=== PATIENT | female | born 1985 | race Asian ===

== ENCOUNTER 2023-04-18 09:34 | Emergency (ER) | payer MEDICAID ==
[~2023-04-18] VITALS: Ht 167.6 cm; Wt 69.9 kg
[2023-04-18 09:47] VITALS: BP 125/66; TEMP 98.2; O2SAT 99
== END 2023-04-18 11:42 | disposition home or self-care (01) ==
LOC: ER 09:39
DX: R05.9 Cough, unspecified (principal); R04.2 Hemoptysis
CPT/HCPCS: 71045-TC

== ENCOUNTER 2024-05-27 21:56 | Emergency (ER) | payer MEDICAID ==
[~2024-05-27] VITALS: Ht 167.6 cm; Wt 68.9 kg
[2024-05-27 23:07] VITALS: BP 139/72; TEMP 98.1
[2024-05-27] MEDS ORDERED: TRIA15OI9 TP (23:17)
[2024-05-27] MEDS ORDERED: CEPH-570 PO (23:17)
[2024-05-27] MEDS ORDERED: PREGABALIN 25 MG CAPSULE ONE (23:23)
[2024-05-27] MEDS ORDERED: CEPHALEXIN MONOHYDRATE 500 MG CAPSULE PO ONE (23:23)
[2024-05-27] MEDS ORDERED: predniSONE 20 MG TABLET ONE (23:24)
[2024-05-27] MEDS: CEPHALEXIN MONOHYDRATE 500 MG CAPSULE PO ONE (23:27)
[2024-05-27] MEDS: predniSONE 20 MG TABLET PO ONE (23:27)
[2024-05-27 23:41] VITALS: O2SAT 98
== END 2024-05-27 23:42 | disposition home or self-care (01) ==
LOC: ER 21:59
DX: S90.862A Insect bite (nonvenomous), left foot, initial encounter (principal); L03.116 Cellulitis of left lower limb; L03.115 Cellulitis of right lower limb; W57.XXXA Bitten or stung by nonvenomous insect and other nonvenomous arthropods, initial encounter; Y93.89 Activity, other specified; Y92.89 Other specified places as the place of occurrence of the external cause; Y99.8 Other external cause status
CPT/HCPCS: 99283; J7512